=== PATIENT | male | born 1945 ===

== ENCOUNTER 2023-06-09 10:59 | Outpatient (CLI) | payer MEDICARE | END 2023-06-09 11:00 | disposition home or self-care (01) | LOC: RAD 10:59 | PROVIDERS: ATTEND Otolaryngology Plastic Surgery within the Head & Neck | DX: R13.12 Dysphagia, oropharyngeal phase (principal); I69.891 Dysphagia following other cerebrovascular disease; K21.9 Gastro-esophageal reflux disease without esophagitis | CPT/HCPCS: 74230 ==